=== PATIENT | female | born 1985 | race African-American/Black ===

== ENCOUNTER 2017-12-28 01:29 | Emergency (ER) | payer MEDICARE, MEDICAID ==
[~2017-12-28] VITALS: Ht 162.6 cm; Wt 120.7 kg
[2017-12-28] MEDS ORDERED: SEROQUEL XR400 MG ORAL (01:59)
[2017-12-28] MEDS ORDERED: ZOLOFT50 MG ORAL (01:59)
[2017-12-28] MEDS ORDERED: TRAZODONE HCL50 MG ORAL (01:59)
[2017-12-28] MEDS ORDERED: Mylanta II UD 30ml ORAL ONE (02:30)
[2017-12-28] MEDS ORDERED: Acetaminophen 500mg (ES) tab ORAL ONE (02:30)
[2017-12-28] MEDS ORDERED: Lidocaine 2% Visc 15ml soln ORAL ONE (02:30)
[2017-12-28] MEDS ORDERED: Dicyclomine HCl 10mg/5ml oral soln ORAL ONE (02:30)
[2017-12-28 04:58] VITALS: BP 121/73
[2017-12-28 05:10] VITALS: BP 116/82
--- NOTE | 2017-12-28 16:16 | Cardiology Report ---
APPROVED REPORT EKG Measurement Heart [id number] Normal sinus rhythm Prolonged QT Abnormal ECG
--- NOTE | 2017-12-29 03:08 | Emergency Room Report ---
History of Present Illness General Chief Complaint: Chest Pain Source: Patient Present Illness HPI Patient present with complaints of midsternal chest pain Reports that his been off-and-on for the past 2-3 weeks She does not associate the pain with any position or exertion Patient reports that she has been given aspirin and nitroglycerin by his physicians at [facility] She also reports that she was told that if her pain continued she might require a catheterization Denies any pleurisy denies any shortness of breath Denies any back or flank pain denies any dysuria frequency Pain as 9 out of 10 midsternal denies any other radiation Allergies: Coded Allergies: IBUPROFEN (Verified Allergy, Unknown, 12/28/17) IODINE (Verified Allergy, Unknown, 12/28/17) Patient History Past Medical History: see triage record Pertinent Family History: none Last Menstrual Period: surgical menopause Reviewed Nursing Documentation: PMH: Agreed; PSxH: Agreed Nursing Documentation-PMH Hx Cardiac Problems: Yes - MILD HEART ATTACK,ENLARGED HEART Hx Hypertension: Yes Review of Systems All Other Systems: negative except mentioned in HPI Physical Exam Vital Signs Date Time Temp Pulse Resp B/P (MAP) Pulse Ox O2 Delivery O2 Flow Rate FiO2 12/28/17 01:51 98.4 88 18 121/73 94 Room Air 98.4 Sp02 EP Interpretation: reviewed, normal General Appearance: well appearing, no apparent distress Head: normocephalic, atraumatic Eyes: right eye other - Lazy right eye ENT: hearing grossly normal, normal pharynx, TMs + canals normal, uvula midline Neck: full range of motion, supple, no meningismus, no bony tend Respiratory: lungs clear, normal breath sounds, no rhonchi, no respiratory distress, no retraction, no accessory muscle use Cardiovascular #1: normal peripheral pulses, regular rate, rhythm, no edema, no gallop, no JVD, no murmur Gastrointestinal: normal bowel sounds, non tender, soft, no mass, no organomegaly, non-distended, no guarding, no hernia, no pulsatile mass, no rebound Genitourinary: no CVA tenderness Musculoskeletal: normal inspection Neurologic: oriented x3, responsive, motor strength/tone normal, sensory intact Psychiatric: mood/affect normal Skin: normal color, no rash, warm/dry, palpation normal Lymphatic: normal inspection, no adenopathy Medical Decision Making Diagnostic Impression: Primary Impression: Chest pain ER Course Given the patient's history and presentation EKG was obtained There are some nonspecific ST changes but no obvious ST elevation Patient reports that the nitroglycerin she had taken previously did not make any change, she had also refuses any aspirin Patient was prescribed GI cocktail along with antacid medication At this time patient has refused any medications She was recommended that if her discomfort persisted that she should follow-up at her primary facility also significant importance for comparing previous EKGs and extensive previous workup EKG Diagnostic Results Rate: normal Rhythm: NSR ST Segments: other - Nonspecific St and T-wave changes Rhythm Strip Diag. Results EP Interpretation: yes Rate: 78 Rhythm: NSR, no PVC's, no ectopy Last Vital Signs Date Time Temp Pulse Resp B/P (MAP) Pulse Ox O2 Delivery O2 Flow Rate FiO2 12/28/17 05:10 98.2 88 16 116/82 95 Room Air Status: improved Disposition: HOME, SELF-CARE Condition: Stable Referrals: NOT CHOSEN IPA/MD,REFERRING (PCP) Patient Instructions: Nonspecific Chest Pain Additional Instructions: As discussed and as you mentioned you have been seen at [facility] on several occasion. 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 You have also mentioned that your service bar cashier has mentioned possibility of heart catheterization if chest pain continues. At this time her EKG does not reveal any obvious ST elevation heart attack. If her discomfort continues and is recommended to follow-up at your primary facility. Kirstin Cagle DO Dec 29, 2017 03:08
== END 2017-12-28 02:35 | disposition home or self-care (01) ==
LOC: EMR 02:00
DX: R07.89 Other chest pain (principal); I10 Essential (primary) hypertension; Z88.6 Allergy status to analgesic agent
CPT/HCPCS: 93005; 99283

== ENCOUNTER 2019-03-20 03:53 | Emergency (ER) | payer MEDICARE, MEDICAID ==
[~2019-03-20] VITALS: Ht 160 cm; Wt 135.2 kg
[~2019-03-20 03:53] MED LIST: SEROQUEL XR400 MG ORAL; TRAZODONE HCL50 MG ORAL; ZOLOFT50 MG ORAL
--- NOTE | 2019-03-20 04:07 | Emergency Room Report ---
History of Present Illness General Chief Complaint: Abdominal Pain Source: Patient, EMS Present Illness HPI This is a 33-year-old female from group home. She has a history of chronic pain and paraplegia. Also history of seizure. She presents with chief complaint abdominal pain. Onset for a week now. She went to urgent care a week ago and had normal blood work and Dilaudid for pain. She said pain comes and go and she had one episode of vomiting was yesterday. She claimed that she is allergic to ibuprofen and nursing staff gave her ibuprofen. She also with chest pain. This is a chronic issue for her. Pain was sharp in the epigastric area. Complaint of pain is 10 out of 10. [place] nauseous now but no vomiting. No diarrhea. Denies any other complaint. Allergies: Coded Allergies: IBUPROFEN (Verified Allergy, Unknown, 12/28/17) IODINE (Verified Allergy, Unknown, 12/28/17) KETOROLAC (Verified Allergy, Unknown, 03/20/19) TRAMADOL (Verified Allergy, Unknown, 03/20/19) Patient History Past Medical History: see triage record, old chart reviewed Past Surgical History: hysterectomy Pertinent Family History: none Social History: Denies: smoking Last Menstrual Period: hysterectomy Now: No Immunizations: other Reviewed Nursing Documentation: PMH: Agreed; PSxH: Agreed Nursing Documentation-PMH Hx Cardiac Problems: Yes - MILD HEART ATTACK,ENLARGED HEART Hx Hypertension: Yes Hx COPD: Yes Hx Diabetes: Yes Review of Systems Eye: Denies: eye pain, blurred vision ENT: Denies: ear pain, nose congestion, throat swelling Respiratory: Denies: cough, shortness of breath Cardiovascular: Reports: chest pain; Denies: palpitations Gastrointestinal: Reports: abdominal pain, nausea; Denies: diarrhea, vomiting Musculoskeletal: Denies: back pain, joint pain Skin: Denies: rash Neurological: Denies: headache, numbness Endocrine: Denies: increased thirst, increased urine Hematologic/Lymphatic: Denies: easy bruising All Other Systems: negative except mentioned in HPI Physical Exam Vital Signs Date Time Temp Pulse Resp B/P (MAP) Pulse Ox O2 Delivery O2 Flow Rate FiO2 03/20/19 03:54 98.2 100 18 141/90 (107) 98 Room Air Vitals normal Sp02 EP Interpretation: reviewed, normal General Appearance: well appearing, no apparent distress, alert, obese Head: normocephalic, atraumatic Eyes: bilateral eye PERRL, bilateral eye EOMI ENT: hearing grossly normal, normal pharynx Neck: full range of motion, supple, no meningismus Respiratory: chest non-tender, lungs clear, normal breath sounds Cardiovascular #1: regular rate, rhythm, no murmur Gastrointestinal: normal bowel sounds, non tender, no mass, no organomegaly, no bruit, non-distended Musculoskeletal: back normal, gait/station normal, normal range of motion Psychiatric: mood/affect normal Medical Decision Making Diagnostic Impression: Primary Impression: Abdominal pain Qualified Codes: R10.84 - Generalized abdominal pain Additional Impressions: Opioid dependence Qualified Codes: F11.20 - Opioid dependence, uncomplicated Constipation Qualified Codes: K59.00 - Constipation, unspecified ER Course This patient presents with abdominal pain. No evidence of an acute abdomen. Labs unremarkable. The unremarkable. I suspect dependency. She is getting it at the group home and has allergy to ibuprofen, Tylenol, Toradol, tramadol. Only can take Dilaudid for pain. CT/MRI/US Diagnostic Results CT/MRI/US Diagnostic Results : Imaging Test Ordered: CT abdomen and pelvis Impression Read by radiologist. Negative. Last Vital Signs Date Time Temp Pulse Resp B/P (MAP) Pulse Ox O2 Delivery O2 Flow Rate FiO2 03/20/19 03:54 98.2 100 18 141/90 (107) 98 Room Air Status: improved Disposition: ER SNF Condition: Stable Patient Instructions: Abdominal Pain, Adult Additional Instructions: Follow-up with your doctor in 7 days. Return if symptoms worsen. Reynaldo Ryan MD Mar 20, 2019 04:07
[2019-03-20 04:10] VITALS: BP 141/90
--- NOTE | 2019-03-20 04:10 | NUR ---
ED Nurse Note: Patient was brought in by ambulance, royalty from [facility] c/o mid lower abd pain, n/v, chest pain since 1500 03/19 after taking ibuprofen. Pt stated she is allergic to lbuptofen. Pain 03/29, sharp. AAO x4, VSS azat this time
[2019-03-20] MEDS ORDERED: HYDROmorphone 1mg/ml Carpuject IVP ONE (04:15)
[2019-03-20] MEDS ORDERED: ASPIRIN-LOW81 MG ORAL (04:20)
[2019-03-20] MEDS ORDERED: METFORMIN HCL500 M1 ORAL (04:20)
[2019-03-20] MEDS ORDERED: KEPPRA500 M4 ORAL (04:20)
[2019-03-20] MEDS ORDERED: METOPROLOL TART25 MG ORAL (04:20)
[2019-03-20] MEDS ORDERED: TRAZODONE HCL150 MG ORAL (04:20)
[2019-03-20] MEDS ORDERED: MILK OF MA400 MG/51 ORAL (04:20)
[2019-03-20] MEDS ORDERED: COREG12.5 MG ORAL (04:20)
[2019-03-20] MEDS ORDERED: SEROQUEL200 MG ORAL (04:20)
[2019-03-20] MEDS ORDERED: AMBIEN5 MG ORAL (04:20)
[2019-03-20] MEDS ORDERED: ATORVASTATIN CA20 MG ORAL (04:20)
[2019-03-20] MEDS ORDERED: ACETAMINOPHEN-1 EAC1 ORAL (04:20)
[2019-03-20] MEDS ORDERED: JANUVIA25 MG ORAL (04:20)
[2019-03-20] MEDS ORDERED: PHENYTOIN SODI100 MG ORAL (04:20)
[2019-03-20] MEDS ORDERED: ATIVAN1 MG ORAL (04:21)
[2019-03-20] MEDS ORDERED: NITROSTAT0.4 M1 SL (04:21)
[2019-03-20 04:28] LABS: APPEARANCE,URINE CLEAR; BASOPHILS % (AUTO) 0.4 % (0.0-2.0); BILIRUBIN, URINE NEGATIVE (NEGATIVE); COLOR,URINE PALE YELLOW; EOSINOPHILS % (AUTO) 1.1 % (0.0-3.0); GLUCOSE, URINE (UA) NEGATIVE (NEGATIVE); HEMATOCRIT 35.4 % (37.0-47.0); HEMOGLOBIN 11.1 G/DL (12.0-16.0); KETONES,URINE NEGATIVE (NEGATIVE); LEUKOCYTE ESTERASE ,URINE NEGATIVE (NEGATIVE); LYMPHOCYTES % (AUTO) 27.3 % (20.0-45.0); MEAN CORPUSCULAR VOLUME 79 FL (80-99); MONOCYTES % (AUTO) 9.2 % (1.0-10.0); NEUTROPHILS % (AUTO) 62.1 % (45.0-75.0); NITRITE,URINE NEGATIVE (NEGATIVE); PH,URINE 5 (4.5-8.0); PLATELET COUNT 206 K/UL (150-450); PROTEIN,URINE NEGATIVE (NEGATIVE); RED BLOOD COUNT 4.46 M/UL (4.20-5.40); UROBILINOGEN,URINE NORMAL MG/DL (0.0-1.0); WHITE BLOOD COUNT 7.8 K/UL (4.8-10.8)
[2019-03-20 04:38] LABS: ANION GAP 6 mmol/L (5-15); BLOOD UREA NITROGEN 9 mg/dL (7-18); CALCIUM 7.3 MG/DL (8.5-10.1); CARBON DIOXIDE 32 MMOL/L (21-32); CHLORIDE 101 MMOL/L (98-107); CREATININE 0.9 MG/DL (0.55-1.30); SODIUM 139 MMOL/L (136-145)
[2019-03-20 04:43] LABS: ALANINE AMINOTRANSFERASE 29 U/L (12-78); ALBUMIN 3.1 G/DL (3.4-5.0); ALBUMIN/GLOBULIN RATIO 0.7 (1.0-2.7); ALKALINE PHOSPHATASE 147 U/L (46-116); ASPARTATE AMINO TRANSFERASE 13 U/L (15-37); BILIRUBIN,TOTAL 0.2 MG/DL (0.2-1.0)
[2019-03-20 05:35] VITALS: BP 141/90
--- NOTE | 2019-03-20 06:16 | Diagnostic Imaging Report ---
Indication: Abdominal pain for 2 days Technique: Spiral acquisitions obtained through the abdomen and pelvis. No oral contrast utilized, per emergency room physician request No IV contrast utilized, per emergency room physician request.. Multiplanar reconstructions were generated. Total dose length product 1790 mGycm. CTDIvol(s) 33 mGy. Dose reduction achieved using automated exposure control Comparison: None Findings: There is colonic diverticulosis. No evidence of diverticulitis. The appendix is normal. No small bowel distention. There is a small fat-containing umbilical hernia. No free or loculated intraperitoneal gas or fluid is evident. The distal esophagus, stomach, duodenum are unremarkable. The liver, gallbladder, bile ducts, pancreas, spleen, adrenals, kidneys are unremarkable. No pelvic mass or adenopathy. The uterus is surgically absent No retroperitoneal or mesenteric mass or adenopathy. The included lung bases are clear. There is an anterior wedge compression fracture deformity of the T12 vertebral body with approximately 20% height loss. Multiple nodules are seen in both breasts. Impression: No acute abnormality Bilateral breast nodules. Recommend mammographic and sonographic evaluation T12 compression fracture, age indeterminate. Consider MRI for further evaluation if considered clinically relevant Colonic diverticulosis. No evidence of diverticulitis Evidence of prior hysterectomy Small fat-containing umbilical hernia This agrees with the preliminary interpretation provided overnight by [facility] teleradiology service. The CT scanner at [facility] is accredited by the [employer] and the scans are performed using protocols designed to limit radiation exposure to as low as reasonably achievable to attain images of sufficient resolution adequate for diagnostic evaluation.
--- NOTE | 2019-03-20 06:20 | NUR ---
ER DISCHARGE NOTE: Patient is cleared to be discharged per ERMD, pt is aox4, on room air, with stable vital signs. pt was given dc and prescription instructions, pt was able to verbalize understanding, pt id band and iv site removed without complications. pt is able to ambulate with steady gait. pt took all belongings, and was transfered back via [facility].
== END 2019-03-20 05:35 ==
LOC: EDBD 03:53 → EDUNIT# 03:53 → EMR 04:26
DX: R10.84 Generalized abdominal pain (principal); F11.20 Opioid dependence, uncomplicated; K59.00 Constipation, unspecified; E11.9 Type 2 diabetes mellitus without complications; I10 Essential (primary) hypertension; J44.9 Chronic obstructive pulmonary disease, unspecified; Z90.710 Acquired absence of both cervix and uterus; Z88.8 Allergy status to other drugs, medicaments and biological substances; Z88.6 Allergy status to analgesic agent; Z91.041 Radiographic dye allergy status; I25.2 Old myocardial infarction; G82.20 Paraplegia, unspecified
CPT/HCPCS: 36415; 74176; 80053; 81003; 81025; 83690; 85025; 96374; 96375; 99284; J1170; J2405